=== PATIENT | female | born 1970 | race Caucasian/White ===

== ENCOUNTER → 2019-04-09 13:36 | Outpatient (BNVA) | payer MEDICARE, SELFPAY | PROVIDERS: PCP Internal Medicine; Referring Provider Internal Medicine; Visit Provider Physical Therapy Assistant | DX: Z12.11 Encounter for screening for malignant neoplasm of colon (principal); I10 Essential (primary) hypertension ==

== ENCOUNTER 2019-05-21 00:07 | Outpatient (CLI) | payer MEDICARE, MEDICAID, SELFPAY ==
--- NOTE | 2019-05-21 11:00 | DI.NM_ITS ---
APPROVED REPORT Exam: Exercise Treadmill Patient Location: Out-Patient Room/Bed: Stress Nurse: Kailey Ochoa RN BMI: 34.38 Baseline Rhythm: Sinus bradycardia Indications: Exertional left sided chest pain (Last episode in March 2019) Pt also needs presurgic al screening for a planned colonoscopy procedure to be done at [facility]. Medical History Medical History: HTN, Hyperlipidemia, Asthma, Smoker Cardiac Medications: Metoprolol succinate/ Toprol XL, Atorvastatin/ Lipitor, Hydrochlorothiazide/ Kurt rozide, Oretic Allergies: Environmental Cardiac Risk Factors: HTN, Hyperlipidemia, Smoking, Asthma Pretest Chest Pain Characteristics: Exertional Chest pain Physical Disabilities: Back Lung Sounds: Clear to auscultation Heart Sounds: Bradycardia Stress Test Details Test: Exercise stress converted to pharmacologic stress due to failure to obtain a diagnostic stress test. Rest Isotope: Tc-99m Sestamibi. Dose: 10.6 Date: 05/21/2019 Injection Time: 0848 Stress Isotope: Tc-99m Sestamibi. Dose: 32.0 Date: 05/21/2019 Injection Time: 1120 HR Max Heart Rate (APMHR): 170 bpm Resting HR Supine: 47 bpm Target HR (85% APMHR): 144 bpm Resting HR Standin bpm Max HR Achieved: 121 bpm % of APMHR: 71 HR response to stress: Normal HR response to stress BP Resting BP Supine: 140/78 mmHg Resting BP Standin/72 mmHg Max BP: 180/100 mmHg Recovery BP: 140/76 mmHg BP response to stress: Abnormal hypertensive response to stress. ECG Resting ECG: Sinus Bradycardia Stress ECG: Sinus Rhythm ST Change: No significant St segment changes. Time of Change: 0300 Stage: 1 Recovery ECG: Sinus Rhythm Recovery ST Change: No significant ST segment changes Recovery ST Deviation: 0.5 mm Clinical Time of Stop for Joel: 5:11 Reason for Termination: Fatigue Exercise duration: 5 min11 sec Highest Stage Achieved: Stage 2: 2.5 mph at 12% grade. Exercise capacity: 7 METs Functional Capacity: Moderately diminished capacity Angina Score: 0 Stress ECG Conclusion 1. Fair exercise tolerance , 7 mets, without angina 2. Hypertensive blood pressure response to exercise 3. Blunted heart rate response to exercise, achieved 71% of predicted heart rate for age. Regadenoson administered 4. Electrocardiographically nondiagnostic due to inadequate heart rate 5. No dysrhythmias Protocol Used: Joel Protocol Stress Test Summary STAGE STAGE STAGE Time (mins) Speed (mph) Grade (%) HR BP SYMPTOMS METS Supine 47 140/78 Standing 49 140/72 1 2 1.7 1 10 92 142/76 Pt transitioned to Lexiscan protocol at this time as pt unable to safely continue on treadmill due to dypsnea and leg pains. 4.6 4 7 1 min recovery 100 180/100 Lexiscan injected 1 min post lexiscan injection 95 160/94 3 min post lexiscan injection 84 140/82 6 min post lexiscan injection 77 140/76 MPI Conclusion No evidence of myocardial ischemia or prior infarction
[2019-05-21] MEDS: Regadenoson 0.4 MG/5 ML SYR IVP (11:39)
== END 2019-05-21 00:27 ==
PROVIDERS: PCP Internal Medicine; Visit Provider Internal Medicine
DX: R07.9 Chest pain, unspecified (principal); I20.9 Angina pectoris, unspecified; I10 Essential (primary) hypertension; Z01.810 Encounter for preprocedural cardiovascular examination; E78.5 Hyperlipidemia, unspecified; F17.200 Nicotine dependence, unspecified, uncomplicated; J45.909 Unspecified asthma, uncomplicated
CPT/HCPCS: 78452; 93016; 93018; 93017; J2785

== ENCOUNTER → 2019-12-24 13:56 | Outpatient (BNVA) | payer MEDICARE, MEDICAID, SELFPAY | PROVIDERS: PCP Internal Medicine; Referring Provider Internal Medicine; Visit Provider Physical Therapy Assistant | DX: Z12.11 Encounter for screening for malignant neoplasm of colon (principal); I10 Essential (primary) hypertension ==

== ENCOUNTER 2020-01-08 07:53 | Day surgery (SDC) | payer MEDICARE, MEDICAID, SELFPAY ==
[2020-01-08 08:09] VITALS: BP 158/83; PULSE 53; RESP 20; TEMP 36.2; O2SAT 98
[2020-01-08] MEDS: Lactated Ringers 1,000 ML 80 ML IV (08:36)
--- NOTE | 2020-01-08 09:28 | W.PM.DSUDISC ---
Discharge Plan Disposition Patient Disposition: HOME Condition: Good Discharge Details Reason For Visit: Colonoscopy Attending Provider: Evonne Purvis Primary Care Provider: Vira Britt Home Meds and New Rx's Prescriptions: Continued atorvastatin 20 mg tablet 20 mg PO DAILY RF: 0 loratadine [Allergy Relief (loratadine)] 10 mg tablet 10 mg PO DAILY RF: 0 hydrochlorothiazide 25 mg tablet 25 mg PO DAILY RF: 0 metoprolol succinate 100 mg tablet extended release 24 hr 100 mg PO BID RF: 0 montelukast [Singulair] 10 mg tablet 10 mg PO DAILY RF: 0 escitalopram oxalate 20 mg tablet 20 mg PO DAILY RF: 0 methylphenidate HCl 10 mg capsule, ER biphasic 30-70 10 mg PO DAILY RF: 0 aspirin 81 mg Tablet,Delayed Release (Dr/Ec) 81 mg PO DAILY RF: 0 Discontinued polyethylene glycol 3350 17 gram/dose powder 238 g PO ONCE Qty: 238 RF: 0 bisacodyl [Dulcolax (bisacodyl)] 5 mg tablet,delayed release (DR/EC) 5 mg PO ONCE Qty: 4 RF: 0 Discharge Instructions Additional Instructions: Findings: One tiny polyp was removed. My office will contact you with biopsy results. Follow up: If the polyp is adenomatous, you will need a colonoscopy in 5 years. Please call if you develop: fevers >101.5 Nausea or Vomiting Abdominal pain that is not transient DAY SURGERY UNIT POST COLONOSCOPY INSTRUCTIONS 1. Because there will be medication in your system for the next 24 hours, you may feel a little sleepy. Your coordination will be affected. Therefore: a. Do not drive or operate dangerous equipment for 24 hours. b. Do not drink alcohol beverages for 24 hours (not even beer). c. Plan to go home and rest for the day. 2. Generally there are no restrictions on your activity after a day or so has gone by, but you may feel a bit fatigued for a few days. 3 After you arrive home you may have a light meal and return to a normal diet as you can tolerate it without feeling sick to your stomach. 4. After surgery, you may feel pain or discomfort. This should be only transient, but if it persists please contact your doctor. 5. If there are any questions regarding the findings of your procedure, please feel free to contact your doctor. 6. If you are unable to contact your doctor with a problem, contact the hospital at [phone]. 0. Continue all your regular medications unless directed otherwise. I understand the above instructions and have no questions. Signature of Patient or Responsible Adult Escort Date/Time Name of Responsible Adult Escort Signature of Nurse Date/Time Activity:: Activity as Tolerated Diet:: As Tolerated Discharge Orders Discharge Orders: Discharge Order (Routine); Ordered 01/08/20 Ordered By: Evonne Purvis DS: Diagnosis Discharge Diagnosis (1) Colon polyp: Status: Acute
--- NOTE | 2020-01-08 09:29 | W.COLOREPORT ---
Date of service: 01/08/20 Time of Service: 10:13 Colonoscopy Report Date of procedure: 01/08/20 Pre-op diagnosis general: Screening Post-op diagnosis procedure note: other (Ascending colon polyp) Procedure: Colonoscopy with cold forceps polypectomy Surgeon: Evonne Purvis Anesthesia proc note operative: MAC Indications: This patient presents for her first screening colonoscopy. She has no symptoms or FH colon cancer. Procedure Description: The patient was placed in the left Patton position. Propofol was titrated to sedation. Digital rectal examination revealed no abnormalities. The scope was advanced to the cecum without difficulty. The ileocecal valve and appendiceal orifice were clearly identified. The prep was good. Just proximal to the ileocecal valve, a diminuitive polyp was removed with the cold forceps. The scope was slowly withdrawn over the course of greater than 6 minutes with no other abnormalities seen in the ascending, transverse, descending, sigmoid colon or rectum including on retroflexed view. The patient tolerated the procedure well and was stable to recovery. Plan for colonoscopy in 5 years if the polyp is adenomatous.
--- NOTE | 2020-01-08 09:50 | BOWEL_PTH ---
PATIENT: EZIO KLINE LOC: [facility] U#:[id number] AGE/SX: 49/F ROOM: RE01/08/[address]: Evonne Purvis MD : [id number] BED: DIS: 01/08/2020 SPEC #: [id number] RECD: 01/08/20 10:39 STATUS: JOSHUA REQ #: [id number] ANITA: 01/08/20 09:[address]: Evonne Purvis DEPT: Surgical Specimen RECD BY: Jada Orr ENTERED: 01/08/20 10:40 SP TYPE: Bowel OTHR DR: Vira Britt Tissues: 1 - BIOPSY BOWEL Procedures: GROSS AND MICRO LEVEL 4 Comments: [id number]
[2020-01-08 10:32] VITALS: BP 145/81; PULSE 40; RESP 17; TEMP 36.5; O2SAT 98
== END 2020-01-08 11:10 | disposition home or self-care (01) ==
PROVIDERS: PCP Internal Medicine; Visit Provider Surgery
PROC: 0DJD8ZZ Inspection of Lower Intestinal Tract, Via Natural or Artificial Opening Endoscopic (ICD-10-PCS; CPT 45378; principal; 2020-01-08 09:45)
DX: Z12.11 Encounter for screening for malignant neoplasm of colon (principal); I10 Essential (primary) hypertension
CPT/HCPCS: 45380; 88305